=== PATIENT | female | born 1965 | race Caucasian/White ===

== ENCOUNTER 2018-01-15 07:21 | Inpatient (IN) | payer OTHER ==
[~2018-01-15] VITALS: Ht 160 cm; Wt 142.0 kg
[2018-01-15 07:47] LABS: HEMATOCRIT 41.1 % (36.0-46.0); HEMOGLOBIN 13.7 G/DL (11.9-15.5); MCHC 33.3 G/DL (30.0-36.0); MCV 86.9 FL (83-99); PLATELET COUNT 192 K/uL (156-360); RBC DIS.WIDTH-CV 14.4 % (11.8-14.6); RBC DIS.WIDTH-SD 45.8 % (39-53); RED BLOOD COUNT 4.73 M/uL (3.80-5.20)
[2018-01-15 07:57] LABS: CHLORIDE 102 mEq/L (99-109); POTASSIUM 4.2 mEq/L (3.7-5.4); SODIUM 139 mEq/L (136-147)
[2018-01-15 07:58] LABS: GLUCOSE 171 mg/dL (70-99)
[2018-01-15 08:03] LABS: GFR ESTIMATE (CALCULATED) > 59 mL/min/; UREA NITROGEN (BUN) 11 mg/dL (9-23)
[2018-01-15 08:09] LABS: TROP-I INTERPRETATION NEGATIVE; TROPONIN-I < 0.01 ng/mL (0.0-0.30)
[2018-01-15 10:05] LABS: INTER. NORMALIZED RATIO 0.9
[2018-01-15] MEDS ORDERED: MELOXICAM15 MG PO (10:43)
[2018-01-15] MEDS ORDERED: LEVOTHYROXINE50 MCG PO (10:43)
[2018-01-15] MEDS ORDERED: LISINOPRIL-HCT1 EACH PO (10:43)
[2018-01-15] MEDS ORDERED: CYMBALTA60 MG PO (10:44)
[2018-01-15] MEDS ORDERED: JANUMET 50/11 TABLET PO (10:44)
[2018-01-15] MEDS ORDERED: ALBUTEROL2.5 MG/3 M IH (10:44)
[2018-01-15] MEDS ORDERED: FERROUS SULFAT325 MG PO (10:45)
[2018-01-15] MEDS ORDERED: MULTI VITAMIN1 EACH PO (10:45)
[2018-01-15] MEDS ORDERED: ZOLPIDEM TARTRA10 MG PO (10:45)
[2018-01-15] MEDS ORDERED: PROAIR HFA8.5 GM IH (10:45)
[2018-01-15] MEDS ORDERED: VESICARE10 MG PO (10:46)
[2018-01-15] MEDS ORDERED: DICLOFENAC SODI50 MG PO (10:46)
[2018-01-15] MEDS ORDERED: ABILIFY10 MG PO (10:46)
[2018-01-15] MEDS ORDERED: TRULICITY1.5 MG/0.5 SC (10:46)
[2018-01-15] MEDS ORDERED: LIPITOR20 MG PO (10:47)
[2018-01-15] MEDS ORDERED: PRIMIDONE50 MG PO (10:47)
[2018-01-15] MEDS ORDERED: INVOKANA300 MG PO (10:47)
[2018-01-15 12:31] LABS: TROP-I INTERPRETATION NEGATIVE; TROPONIN-I < 0.01 ng/mL (0.0-0.30)
[2018-01-15 13:44] VITALS: BP 138/80
[2018-01-15 16:36] VITALS: BP 116/57
[2018-01-15 16:58] LABS: TROP-I INTERPRETATION NEGATIVE; TROPONIN-I < 0.01 ng/mL (0.0-0.30)
[2018-01-15 19:45] VITALS: BP 104/71
[2018-01-15 23:48] VITALS: BP 94/55
[2018-01-16 03:17] VITALS: BP 118/70
[2018-01-16 05:44] LABS: HEMATOCRIT 39.3 % (36.0-46.0); HEMOGLOBIN 12.5 G/DL (11.9-15.5); MCH 28.3 PG (29.0-34.0); MCHC 31.8 G/DL (30.0-36.0); MCV 89.1 FL (83-99); PLATELET COUNT 173 K/uL (156-360); RBC DIS.WIDTH-CV 14.5 % (11.8-14.6); RBC DIS.WIDTH-SD 47.2 % (39-53); RED BLOOD COUNT 4.41 M/uL (3.80-5.20); WHITE BLOOD COUNT 11.5 K/uL (4.1-10.2)
[2018-01-16 05:56] LABS: PTT 48.4 SEC (25-37)
[2018-01-16 06:06] LABS: CHLORIDE 101 MEQ/L (99-109); CREATININE 0.9 MG/DL (0.6-1.3); GFR ESTIMATE (CALCULATED) > 59 mL/min/; GLUCOSE 131 mg/dL (70-99); POTASSIUM 4.6 MEQ/L (3.7-5.4); SODIUM 138 MEQ/L (136-147); UREA NITROGEN (BUN) 13 mg/dL (9-23)
[2018-01-16 07:00] VITALS: BP 111/59
[2018-01-16 11:00] VITALS: BP 92/54
[2018-01-16 15:10] VITALS: BP 106/55
== END 2018-01-16 22:42 | disposition short-term general hospital (02) | DRG 299 ==
LOC: EME 07:21 → 5EAST 11:12 → EDOF 11:12 → ENRESERV 11:13 → 5EAST 13:14
PROVIDERS: Hospitalist; Internal Medicine; Nurse Practitioner Family; Physician Assistant
DX: I82.491 Acute embolism and thrombosis of other specified deep vein of right lower extremity (principal); I26.99 Other pulmonary embolism without acute cor pulmonale; Z68.41 Body mass index [BMI] 40.0-44.9, adult; I10 Essential (primary) hypertension; E66.01 Morbid (severe) obesity due to excess calories; F32.9 Major depressive disorder, single episode, unspecified; E78.5 Hyperlipidemia, unspecified; M19.90 Unspecified osteoarthritis, unspecified site; R91.1 Solitary pulmonary nodule; Z96.651 Presence of right artificial knee joint; Z80.9 Family history of malignant neoplasm, unspecified; Z98.890 Other specified postprocedural states; E03.9 Hypothyroidism, unspecified; Z87.891 Personal history of nicotine dependence; Z88.2 Allergy status to sulfonamides; Z79.899 Other long term (current) drug therapy; I25.2 Old myocardial infarction; E11.9 Type 2 diabetes mellitus without complications; Z79.01 Long term (current) use of anticoagulants
CPT/HCPCS: 71046; 71275; 80048; 81003; 82948; 83036; 84484; 85027; 85379; 85610; 85730; 93005; 93306; 93971; 94799; 99202; 99281; 99285; J7030